=== PATIENT | male | born 1935 | race Caucasian/White ===

== ENCOUNTER 2023-11-10 17:55 | Inpatient (IN) | payer MEDICARE ==
[~2023-11-10] VITALS: Ht 170.2 cm; Wt 86.7 kg
[2023-11-10 21:00] VITALS: BP 141/58; PULSE 121; RESP 20; TEMP 99.1; O2SAT 98
[2023-11-10 21:30] VITALS: BP 134/99; PULSE 101; RESP 20; TEMP 98.7
[2023-11-10] MEDS ORDERED: DOCUSATE SODIUM 100 MG CAP PO PRN (22:15)
[2023-11-10] MEDS ORDERED: ACETAMINOPHEN 325 MG TAB PO PRN (22:15)
[2023-11-10 22:22] VITALS: BP 134/99; PULSE 101; RESP 20; TEMP 98.7; O2SAT 96
[2023-11-10] MEDS ORDERED: ALBUTEROL/IPRATROPIUM 3 ML NEB NEB PRN (22:30)
[2023-11-11] VITALS (11 sets, daily range): BP systolic 86–196; BP diastolic 52–147; PULSE 58–126; RESP 18–20; TEMP 98–101.1; O2SAT 95–100
[2023-11-11] MEDS: SODIUM CHLORIDE 0.9% 1000ML 500 ML IV ONE (04:00)
[2023-11-11] MEDS: DIGOXIN INJ 0.25 MG/ML 2 ML AMP IV ONE ×2 (04:20→10:47)
[2023-11-11] MEDS: DOCUSATE SODIUM 100 MG CAP PO SCH (09:04)
[2023-11-11] MEDS: DIGOXIN 0.125 MG TAB PO SCH (09:05)
[2023-11-11] MEDS: TRAMADOL HCL 50 MG TAB PO PRN (09:05)
[2023-11-11] MEDS ORDERED: SIMETHICONE 80 MG CHEW PO PRN (10:30)
[2023-11-11] MEDS ORDERED: MELATONIN 3 MG TAB PO PRN (10:30)
[2023-11-11] MEDS ORDERED: DOCUSATE SODIUM 100 MG CAP PO PRN (10:30)
[2023-11-11] MEDS ORDERED: ALBUTEROL/IPRATROPIUM 3 ML NEB NEB PRN (10:30)
[2023-11-11] MEDS ORDERED: METOPROLOL TARTRATE INJ 1 MG/ML VIAL IV PRN (10:30)
[2023-11-11] MEDS ORDERED: ONDANSETRON HCL INJ 2MG/ML 2ML 2 MG/ML VIAL IV PRN (10:30)
[2023-11-11 12:41] LABS: BASOPHILS % 0.2 % (0.0-1.0); EOSINOPHILS # (AUTO) 0.1 (0.0-0.4); EOSINOPHILS % 0.4 % (0.0-6.0); HEMATOCRIT 29.7 % (38.2-49.6); HEMOGLOBIN 9.5 g/dL (14.0-18.0); LYMPHOCYTES # (AUTO) 3.1 (1.0-3.2); MEAN CORPUSCULAR HEMOGLOBIN 28.9 pg (28-32); MEAN CORPUSCULAR VOLUME 90.3 fL (81-99); MONOCYTES # (AUTO) 1.2 (0.2-0.8); MONOCYTES % 6.1 % (4.4-11.3); NEUTROPHILS # (AUTO) 14.9 (2.1-6.9); NEUTROPHILS % 76.4 % (38.7-80.0); PLATELET COUNT 271 x10e3/uL (140-360); RED BLOOD COUNT 3.29 x10e6/uL (4.3-5.7); RED CELL DISTRIBUTION WIDTH 13.6 % (11.7-14.4); WHITE BLOOD COUNT 19.46 x10e3/uL (4.8-10.8)
[2023-11-11 15:19] LABS: ALBUMIN 2.3 g/dL (3.5-5.0); ALBUMIN/GLOBULIN RATIO 0.6 (0.8-2.0); ANION GAP 15.9 mmol/L (8-16); BILIRUBIN,TOTAL 0.6 mg/dL (0.2-1.2); CREATININE, SERUM 1.43 mg/dL (0.72-1.25); POTASSIUM 3.9 mmol/L (3.5-5.1); TOTAL PROTEIN 6.3 g/dL (6.5-8.1)
[2023-11-11] MEDS: GUAIFENESIN/DEXTROMETHORPHAN LIQD 5 ML UDC NG PRN (21:41)
[2023-11-12] VITALS (9 sets, daily range): BP systolic 112–129; BP diastolic 58–68; PULSE 85–97; RESP 16–20; TEMP 97.8–98.8; O2SAT 95–98
[2023-11-12] MEDS: ACETAMINOPHEN/CODEINE 300MG - 30MG TAB PO PRN (00:18)
[2023-11-12 06:01] LABS: BASOPHILS % 0.2 % (0.0-1.0); EOSINOPHILS # (AUTO) 0.5 (0.0-0.4); EOSINOPHILS % 2.8 % (0.0-6.0); HEMATOCRIT 28.9 % (38.2-49.6); LYMPHOCYTES # (AUTO) 3.5 (1.0-3.2); LYMPHOCYTES % 20.9 % (18.0-39.1); MEAN CORPUSCULAR HEMOGLOBIN 28.4 pg (28-32); MEAN CORPUSCULAR HGB CONC 31.1 g/dL (31-35); MEAN CORPUSCULAR VOLUME 91.2 fL (81-99); MONOCYTES # (AUTO) 1.3 (0.2-0.8); MONOCYTES % 7.6 % (4.4-11.3); NEUTROPHILS # (AUTO) 11.2 (2.1-6.9); NEUTROPHILS % 67.4 % (38.7-80.0); PLATELET COUNT 276 x10e3/uL (140-360); RED BLOOD COUNT 3.17 x10e6/uL (4.3-5.7); RED CELL DISTRIBUTION WIDTH 13.5 % (11.7-14.4); WHITE BLOOD COUNT 16.58 x10e3/uL (4.8-10.8)
[2023-11-12 06:40] LABS: ANION GAP 12.8 mmol/L (8-16); CALCIUM 8.1 mg/dL (8.4-10.2); CREATININE, SERUM 1.29 mg/dL (0.72-1.25); PHOSPHORUS 3.2 MG/DL (2.3-4.7); POTASSIUM 3.8 mmol/L (3.5-5.1)
[2023-11-12 07:37] LABS: BASOPHILS % (MANUAL) 1 % (0-1.5); EOSINOPHILS % (MANUAL) 1 % (0-7); LYMPHOCYTES % (MANUAL) 20 % (19-48); MONOCYTES % (MANUAL) 6 % (3.4-9.0); NEUTROPHILS % (MANUAL) 72 % (40-74); PLATELET ESTIMATE ADEQUATE; PLATELET MORPHOLOGY COMMENT NORMAL; RBC MORPHOLOGY COMMENT NORMAL
[2023-11-12] MEDS ORDERED: ONDANSETRON HCL 4 MG ORAL DISINTEGRATING TAB PO PRN (14:30)
[2023-11-12] MEDS: ARTIFICIAL TEARS (OPTH) 15 ML BTL OS SCH (21:00)
[2023-11-13] VITALS (10 sets, daily range): BP systolic 111–139; BP diastolic 53–95; PULSE 70–93; RESP 16–20; TEMP 97.6–99.7; O2SAT 94–99
[2023-11-13 06:05] LABS: BASOPHILS % 0.1 % (0.0-1.0); EOSINOPHILS # (AUTO) 0.5 (0.0-0.4); EOSINOPHILS % 3.6 % (0.0-6.0); HEMATOCRIT 27.1 % (38.2-49.6); HEMOGLOBIN 8.5 g/dL (14.0-18.0); LYMPHOCYTES # (AUTO) 2.2 (1.0-3.2); LYMPHOCYTES % 15.8 % (18.0-39.1); MEAN CORPUSCULAR HEMOGLOBIN 28.5 pg (28-32); MEAN CORPUSCULAR HGB CONC 31.4 g/dL (31-35); MEAN CORPUSCULAR VOLUME 90.9 fL (81-99); MONOCYTES # (AUTO) 1.2 (0.2-0.8); NEUTROPHILS # (AUTO) 9.7 (2.1-6.9); NEUTROPHILS % 69.9 % (38.7-80.0); PLATELET COUNT 289 x10e3/uL (140-360); RED BLOOD COUNT 2.98 x10e6/uL (4.3-5.7); RED CELL DISTRIBUTION WIDTH 13.5 % (11.7-14.4); WHITE BLOOD COUNT 13.83 x10e3/uL (4.8-10.8)
[2023-11-13 06:31] LABS: ANION GAP 12.7 mmol/L (8-16); CALCIUM 7.9 mg/dL (8.4-10.2); CREATININE, SERUM 1.21 mg/dL (0.72-1.25); PHOSPHORUS 2.8 MG/DL (2.3-4.7); POTASSIUM 3.7 mmol/L (3.5-5.1)
[2023-11-13] MEDS: METOPROLOL TARTRATE 25 MG TAB PO SCH (09:54)
[2023-11-13] MEDS: BENZONATATE 100 MG CAP PO PRN (17:53)
[2023-11-13] MEDS: APIXABAN 5 MG TABLET PO SCH (22:02)
[2023-11-14] VITALS: BP 138/86; PULSE 92; RESP 18; TEMP 98.7; O2SAT 99
[2023-11-14 04:00] VITALS: BP 107/48; PULSE 85; RESP 18; TEMP 99.1; O2SAT 96
[2023-11-14 06:45] VITALS: PULSE 95; RESP 22; O2SAT 95
[2023-11-14 08:34] VITALS: BP 153/76; PULSE 75; RESP 19; TEMP 98; O2SAT 98
[2023-11-14 09:16] VITALS: BP 131/67; PULSE 98; RESP 20; TEMP 98.7; O2SAT 95
[2023-11-14 10:16] LABS: BASOPHILS % 0.1 % (0.0-1.0); EOSINOPHILS # (AUTO) 0.2 (0.0-0.4); EOSINOPHILS % 1.2 % (0.0-6.0); HEMATOCRIT 31.1 % (38.2-49.6); HEMOGLOBIN 9.8 g/dL (14.0-18.0); LYMPHOCYTES # (AUTO) 2.1 (1.0-3.2); LYMPHOCYTES % 14.3 % (18.0-39.1); MEAN CORPUSCULAR HEMOGLOBIN 28.6 pg (28-32); MEAN CORPUSCULAR HGB CONC 31.5 g/dL (31-35); MEAN CORPUSCULAR VOLUME 90.7 fL (81-99); MONOCYTES # (AUTO) 1.3 (0.2-0.8); MONOCYTES % 8.8 % (4.4-11.3); NEUTROPHILS # (AUTO) 10.5 (2.1-6.9); PLATELET COUNT 353 x10e3/uL (140-360); RED BLOOD COUNT 3.43 x10e6/uL (4.3-5.7); RED CELL DISTRIBUTION WIDTH 13.8 % (11.7-14.4); WHITE BLOOD COUNT 14.35 x10e3/uL (4.8-10.8)
[2023-11-14 10:35] LABS: ANION GAP 15.4 mmol/L (8-16); CALCIUM 8.6 mg/dL (8.4-10.2); CREATININE, SERUM 1.16 mg/dL (0.72-1.25); POTASSIUM 4.4 mmol/L (3.5-5.1)
[2023-11-14 16:32] VITALS: BP 137/65; PULSE 83; RESP 19; TEMP 97.9; O2SAT 97
[2023-11-15] MEDS ORDERED: AZITHROMYCIN 250 MG TAB PO SCH (10:00)
== END 2023-11-14 17:37 | DRG 871 ==
LOC: MED/SURG2 21:19
PROVIDERS: ADMIT Internal Medicine; ATTEND Internal Medicine
PROC: 3E0333Z Introduction of Anti-inflammatory into Peripheral Vein, Percutaneous Approach (ICD-10-PCS; principal; 2023-11-11)
DX: A41.9 Sepsis, unspecified organism (principal); J18.9 Pneumonia, unspecified organism; Z59.01 Sheltered homelessness; I48.0 Paroxysmal atrial fibrillation; Z90.01 Acquired absence of eye
CPT/HCPCS: 36415; 71046; 71250; 74230; 80048; 80053; 82948; 83605; 83735; 84100; 85025; 87040; 93306; 94799; J1160; J2543; J7050

== ENCOUNTER 2023-12-17 16:57 | Inpatient (IN) | payer MEDICARE ==
[~2023-12-17] VITALS: Ht 172.7 cm; Wt 92.1 kg
[2023-12-17 18:00] LABS: BASOPHILS % 0.2 % (0.0-1.0); EOSINOPHILS # (AUTO) 0.1 (0.0-0.4); EOSINOPHILS % 0.4 % (0.0-6.0); LYMPHOCYTES # (AUTO) 4.4 (1.0-3.2); LYMPHOCYTES % 36.1 % (18.0-39.1); MEAN CORPUSCULAR HEMOGLOBIN 27.7 pg (28-32); MEAN CORPUSCULAR VOLUME 95.4 fL (81-99); MONOCYTES # (AUTO) 0.7 (0.2-0.8); MONOCYTES % 5.4 % (4.4-11.3); NEUTROPHILS % 57.2 % (38.7-80.0); PLATELET COUNT 135 x10e3/uL (140-360); RED CELL DISTRIBUTION WIDTH 15.4 % (11.7-14.4)
[2023-12-17 18:01] LABS: HEMOGLOBIN 3.6 g/dL (14.0-18.0)
[2023-12-17 18:02] LABS: HEMATOCRIT 12.4 % (38.2-49.6)
[2023-12-17 18:12] LABS: ALBUMIN 1.9 g/dL (3.5-5.0); ALBUMIN/GLOBULIN RATIO 1.1 (0.8-2.0); ANION GAP 16.8 mmol/L (8-16); BILIRUBIN,TOTAL 0.3 mg/dL (0.2-1.2); CREATININE, SERUM 1.06 mg/dL (0.72-1.25); POTASSIUM 4.8 mmol/L (3.5-5.1); TOTAL PROTEIN 3.7 g/dL (6.5-8.1)
[2023-12-17 18:14] LABS: CALCIUM 6.8 mg/dL (8.4-10.2)
[2023-12-17] MEDS ORDERED: OCTREOTIDE ACETATE 500 MCG in SODIUM CHLORIDE 0.9% 250ML 249 ML IV SCH (18:15)
[2023-12-17 18:18] LABS: TROPONIN I 0.049 ng/mL (0-0.300)
[2023-12-17] MEDS ORDERED: SODIUM CHLORIDE 0.9% 250ML 500 ML ONE (18:24)
[2023-12-17] MEDS ORDERED: IOPAMIDOL 370 MG/ML 100 ML INFUS..BTL INJ ONE (18:34)
[2023-12-17] MEDS ORDERED: SODIUM CHLORIDE 0.9% 100 ML ONE (18:34)
[2023-12-17 18:41] LABS: INR 1.95; PARTIAL THROMBOPLASTIN TIME 35.4 seconds (23.8-35.5); PROTHROMBIN TIME 23.2 seconds (11.9-14.5)
[2023-12-17] MEDS: ACETAMINOPHEN 325 MG TAB PO STA (18:41)
[2023-12-17] MEDS: SODIUM CHLORIDE 0.9% 1000ML 1,000 ML IV ONE ×2 (18:41→22:52)
[2023-12-17] MEDS: SODIUM CHLORIDE 0.9% 250ML 250 ML IV ONE ×2 (18:42→18:43)
[2023-12-17] MEDS: SODIUM CHLORIDE 0.9% 1000ML 1,000 ML IV STA (18:44)
[2023-12-17] MEDS: ONDANSETRON HCL INJ 2MG/ML 2ML 2 MG/ML VIAL IV STA (18:44)
[2023-12-17] MEDS ORDERED: OCTREOTIDE ACETATE 1 ML ONE (19:19)
[2023-12-17] MEDS: NOREPINEPHRINE 8 MG/D5W 250 ML 250 ML IV SCH (19:23)
[2023-12-17] MEDS: CALCIUM GLUC 1 G/50 ML NACL 50 ML IV ONE (19:44)
[2023-12-17] MEDS: OCTREOTIDE ACETATE 500 MCG in SODIUM CHLORIDE 0.9% 250ML 249 ML IV SCH (19:57)
[2023-12-17] MEDS: OCTREOTIDE ACETATE 0.05 MG/ML AMP IV ONE (20:09)
[2023-12-17] MEDS: Morphine 4mg INJECTION 4 MG/ML INJ IV ONE (21:13)
[2023-12-17] MEDS: ACETAMINOPHEN 325 MG TAB PO ONE (21:29)
[2023-12-17 21:40] VITALS: PULSE 84; RESP 17; TEMP 98.6
[2023-12-17] MEDS: MUPIROCIN 2% OINT 22 GM TUBE TOP SCH (22:00)
[2023-12-17 22:40] VITALS: PULSE 128; RESP 17; O2SAT 97
[2023-12-17 23:50] VITALS: BP 119/51; PULSE 60; RESP 18; TEMP 98.6; O2SAT 100
[2023-12-18] VITALS (100 sets, daily range): BP systolic 81–159; BP diastolic 41–92; PULSE 39–155; RESP 13–28; TEMP 97.4–99.8; O2SAT 91–100
[2023-12-18] MEDS: Morphine 4mg INJECTION 4 MG/ML INJ IV PRN ×2 (04:15→12:20)
[2023-12-18] MEDS: METOPROLOL TARTRATE INJ 1 MG/ML VIAL IV ONE (05:50)
[2023-12-18 09:05] LABS: BASOPHILS % 0.2 % (0.0-1.0); EOSINOPHILS % 0.1 % (0.0-6.0); HEMATOCRIT 28.2 % (38.2-49.6); HEMOGLOBIN 9.4 g/dL (14.0-18.0); LYMPHOCYTES % 10.1 % (18.0-39.1); MEAN CORPUSCULAR HGB CONC 33.3 g/dL (31-35); MEAN CORPUSCULAR VOLUME 90.1 fL (81-99); MONOCYTES # (AUTO) 1.4 (0.2-0.8); MONOCYTES % 7.1 % (4.4-11.3); NEUTROPHILS # (AUTO) 15.8 (2.1-6.9); NEUTROPHILS % 81.4 % (38.7-80.0); PLATELET COUNT 147 x10e3/uL (140-360); RED BLOOD COUNT 3.13 x10e6/uL (4.3-5.7); RED CELL DISTRIBUTION WIDTH 15.9 % (11.7-14.4); WHITE BLOOD COUNT 19.45 x10e3/uL (4.8-10.8)
[2023-12-18 09:34] LABS: ALBUMIN 2.5 g/dL (3.5-5.0); ALBUMIN/GLOBULIN RATIO 1.1 (0.8-2.0); ANION GAP 12.2 mmol/L (8-16); BILIRUBIN,TOTAL 0.8 mg/dL (0.2-1.2); CALCIUM 7.5 mg/dL (8.4-10.2); CREATININE, SERUM 1.15 mg/dL (0.72-1.25); POTASSIUM 4.2 mmol/L (3.5-5.1); TOTAL PROTEIN 4.8 g/dL (6.5-8.1)
[2023-12-18 10:25] LABS: TROPONIN I 0.07 ng/mL (0.0-0.40)
[2023-12-18] MEDS ORDERED: ONDANSETRON ODT4 MG PO (10:30)
[2023-12-18] MEDS ORDERED: IPRATROPIU0.2 MG/1 M INH (10:30)
[2023-12-18] MEDS ORDERED: MELATONIN3 MG PO (10:30)
[2023-12-18] MEDS ORDERED: BENZONATATE100 MG PO (10:30)
[2023-12-18] MEDS ORDERED: TYLENOL325 MG PO (10:30)
[2023-12-18] MEDS ORDERED: DULCOLAX SUPP10 MG RC (10:30)
[2023-12-18] MEDS ORDERED: ACETAMINOPHEN-1 EAC4 PO (10:30)
[2023-12-18] MEDS ORDERED: METOPROLOL TART25 MG PO (10:30)
[2023-12-18] MEDS ORDERED: DIGOXIN125 MCG PO (10:30)
[2023-12-18] MEDS ORDERED: ELIQUIS5 MG PO (10:30)
[2023-12-18] MEDS ORDERED: DOCUSATE SODIU100 MG PO (10:30)
[2023-12-18] MEDS ORDERED: ARTIFICIAL TEAR15 ML OD (10:30)
[2023-12-18] MEDS ORDERED: LATANOPROST2.5 ML OP (10:30)
[2023-12-18] MEDS ORDERED: IMODIUM A-1 MG/7.5 M PO (10:30)
[2023-12-18] MEDS ORDERED: GUAIFENESIN-DM 15 M1 PO (10:30)
[2023-12-18] MEDS: DIGOXIN 0.125 MG TAB PO SCH (12:05)
[2023-12-18] MEDS: ALBUMIN 5% 0.05 GM/ML BTL IV ONE ×2 (13:30→19:10)
[2023-12-18] MEDS ORDERED: AMIODARONE HCL 150 MG/100 ML BAG IV ONE (14:30)
[2023-12-18] MEDS: AMIODARONE HCL 100 ML IV ONE (14:36)
[2023-12-18] MEDS: AMIODARONE 900MG 500 ML IV SCH ×2 (14:49→21:07)
[2023-12-18] MEDS: VASOPRESSIN 60 UNIT in DEXTROSE 5% 50ML 57 ML IV SCH (14:55)
[2023-12-18] MEDS: OCTREOTIDE ACETATE 500 MCG in SODIUM CHLORIDE 0.9% 250ML 249 ML IV SCH (15:02)
[2023-12-18 15:24] LABS: HEMATOCRIT 24.7 % (38.2-49.6)
[2023-12-18] MEDS: METOPROLOL TARTRATE 25 MG TAB PO SCH (16:55)
[2023-12-18] MEDS: PHENYLEPHRINE 10MG/ML VIAL 40 MG in DEXTROSE 5% 250ML 246 ML IV SCH (18:45)
[2023-12-18 19:09] LABS: TROPONIN I 0.2 ng/mL (0-0.300)
[2023-12-18] MEDS: SODIUM CHLORIDE 0.9% 250ML 250 ML ONE ×2 (19:21)
[2023-12-18 21:20] LABS: BASOPHILS % 0.3 % (0.0-1.0); EOSINOPHILS % 0.1 % (0.0-6.0); HEMATOCRIT 23.3 % (38.2-49.6); HEMOGLOBIN 7.6 g/dL (14.0-18.0); LYMPHOCYTES # (AUTO) 2.8 (1.0-3.2); LYMPHOCYTES % 17.5 % (18.0-39.1); MEAN CORPUSCULAR HEMOGLOBIN 29.8 pg (28-32); MEAN CORPUSCULAR HGB CONC 32.6 g/dL (31-35); MEAN CORPUSCULAR VOLUME 91.4 fL (81-99); MONOCYTES # (AUTO) 1.2 (0.2-0.8); MONOCYTES % 7.2 % (4.4-11.3); NEUTROPHILS # (AUTO) 11.8 (2.1-6.9); NEUTROPHILS % 74.1 % (38.7-80.0); PLATELET COUNT 112 x10e3/uL (140-360); RED BLOOD COUNT 2.55 x10e6/uL (4.3-5.7); RED CELL DISTRIBUTION WIDTH 16.3 % (11.7-14.4); WHITE BLOOD COUNT 15.95 x10e3/uL (4.8-10.8)
[2023-12-18 21:29] LABS: CREATINE KINASE 103 IU/L (30-200)
[2023-12-18] MEDS ORDERED: SODIUM CHLORIDE 0.9% 250ML 250 ML IV PRN (21:30)
[2023-12-18 21:35] LABS: TROPONIN I < 0.05 ng/mL (0.0-0.40)
[2023-12-18] MEDS: SODIUM CHLORIDE 0.9% 250ML 250 ML IV ONE (22:38)
[2023-12-19] VITALS (90 sets, daily range): BP systolic 83–121; BP diastolic 38–94; PULSE 44–100; RESP 15–33; TEMP 96.7–99.8; O2SAT 65–99
[2023-12-19 05:23] LABS: BASOPHILS # (AUTO) 0.1 (0.0-0.1); BASOPHILS % 0.4 % (0.0-1.0); EOSINOPHILS # (AUTO) 0.1 (0.0-0.4); EOSINOPHILS % 0.4 % (0.0-6.0); HEMATOCRIT 28.4 % (38.2-49.6); HEMOGLOBIN 9.1 g/dL (14.0-18.0); LYMPHOCYTES # (AUTO) 3.5 (1.0-3.2); LYMPHOCYTES % 25.3 % (18.0-39.1); MEAN CORPUSCULAR HEMOGLOBIN 29.6 pg (28-32); MEAN CORPUSCULAR VOLUME 92.5 fL (81-99); MONOCYTES # (AUTO) 1.2 (0.2-0.8); MONOCYTES % 8.8 % (4.4-11.3); NEUTROPHILS % 64.7 % (38.7-80.0); PLATELET COUNT 116 x10e3/uL (140-360); RED BLOOD COUNT 3.07 x10e6/uL (4.3-5.7); RED CELL DISTRIBUTION WIDTH 16.8 % (11.7-14.4)
[2023-12-19 05:46] LABS: ALBUMIN 2.7 g/dL (3.5-5.0); ALBUMIN/GLOBULIN RATIO 1.2 (0.8-2.0); ANION GAP 11.1 mmol/L (8-16); CALCIUM 7.6 mg/dL (8.4-10.2); CREATININE, SERUM 1.21 mg/dL (0.72-1.25); POTASSIUM 4.1 mmol/L (3.5-5.1)
[2023-12-19 05:57] LABS: INR 1.35; PROTHROMBIN TIME 17.4 seconds (11.9-14.5)
[2023-12-19 13:29] LABS: HEMATOCRIT 27.5 % (38.2-49.6); HEMOGLOBIN 8.8 g/dL (14.0-18.0)
[2023-12-19] MEDS: Morphine 4mg INJECTION 4 MG/ML INJ IV PRN (21:27)
[2023-12-20] VITALS (92 sets, daily range): BP systolic 65–137; BP diastolic 47–86; PULSE 34–99; RESP 13–32; TEMP 96.9–98.1; O2SAT 91–100
[2023-12-20 07:02] LABS: BASOPHILS % 0.3 % (0.0-1.0); EOSINOPHILS # (AUTO) 0.1 (0.0-0.4); EOSINOPHILS % 0.8 % (0.0-6.0); HEMATOCRIT 27.9 % (38.2-49.6); HEMOGLOBIN 8.8 g/dL (14.0-18.0); LYMPHOCYTES # (AUTO) 2.1 (1.0-3.2); LYMPHOCYTES % 17.3 % (18.0-39.1); MEAN CORPUSCULAR HEMOGLOBIN 29.8 pg (28-32); MEAN CORPUSCULAR HGB CONC 31.5 g/dL (31-35); MEAN CORPUSCULAR VOLUME 94.6 fL (81-99); MONOCYTES # (AUTO) 1.6 (0.2-0.8); MONOCYTES % 12.8 % (4.4-11.3); NEUTROPHILS # (AUTO) 8.5 (2.1-6.9); NEUTROPHILS % 68.3 % (38.7-80.0); PLATELET COUNT 134 x10e3/uL (140-360); RED BLOOD COUNT 2.95 x10e6/uL (4.3-5.7); RED CELL DISTRIBUTION WIDTH 18.4 % (11.7-14.4)
[2023-12-20 07:22] LABS: ALBUMIN 2.4 g/dL (3.5-5.0); ALBUMIN/GLOBULIN RATIO 0.9 (0.8-2.0); ANION GAP 11.1 mmol/L (8-16); BILIRUBIN,TOTAL 1.1 mg/dL (0.2-1.2); CALCIUM 7.6 mg/dL (8.4-10.2); CREATININE, SERUM 0.99 mg/dL (0.72-1.25); POTASSIUM 4.1 mmol/L (3.5-5.1); TOTAL PROTEIN 5.1 g/dL (6.5-8.1)
[2023-12-20 09:37] LABS: CLARITY,URINE SL CLOUDY (CLEAR); COLOR,URINE YELLOW (YELLOW)
[2023-12-20 09:38] LABS: BILIRUBIN,URINE NEGATIVE (NEGATIVE); GLUCOSE, URINE NEGATIVE (NEGATIVE); KETONES,URINE NEGATIVE (NEGATIVE); LEUKOCYTE ESTERASE ,URINE TRACE (NEGATIVE); NITRITE,URINE NEGATIVE (NEGATIVE); PH,URINE 6 (5 - 7); PROTEIN,URINE DIPSTICK 1+ (NEGATIVE); URINE UROBILINOGEN 1 mg/dL (0.2 - 1)
[2023-12-20 09:39] LABS: BACTERIA,URINE MODERATE /HPF; RBC,URINE >50 /HPF (0-5); WBC,URINE (MAN) >50 /HPF (0-5)
[2023-12-20] MEDS: VASOPRESSIN 60 UNIT in DEXTROSE 5% 50ML 57 ML IV SCH (17:39)
[2023-12-21] VITALS (49 sets, daily range): BP systolic 96–137; BP diastolic 46–79; PULSE 57–99; RESP 18–34; TEMP 98.5–99.3; O2SAT 92–99
[2023-12-21 05:13] LABS: BASOPHILS % 0.3 % (0.0-1.0); EOSINOPHILS # (AUTO) 0.2 (0.0-0.4); EOSINOPHILS % 1.3 % (0.0-6.0); HEMATOCRIT 26.3 % (38.2-49.6); HEMOGLOBIN 8.3 g/dL (14.0-18.0); LYMPHOCYTES # (AUTO) 2.4 (1.0-3.2); LYMPHOCYTES % 18.9 % (18.0-39.1); MEAN CORPUSCULAR HEMOGLOBIN 29.7 pg (28-32); MEAN CORPUSCULAR HGB CONC 31.6 g/dL (31-35); MEAN CORPUSCULAR VOLUME 94.3 fL (81-99); MONOCYTES # (AUTO) 1.8 (0.2-0.8); MONOCYTES % 13.8 % (4.4-11.3); NEUTROPHILS # (AUTO) 8.3 (2.1-6.9); NEUTROPHILS % 64.9 % (38.7-80.0); PLATELET COUNT 108 x10e3/uL (140-360); RED BLOOD COUNT 2.79 x10e6/uL (4.3-5.7); RED CELL DISTRIBUTION WIDTH 18.5 % (11.7-14.4); WHITE BLOOD COUNT 12.83 x10e3/uL (4.8-10.8)
[2023-12-21 05:47] LABS: ALBUMIN 2.1 g/dL (3.5-5.0); ALBUMIN/GLOBULIN RATIO 0.8 (0.8-2.0); ANION GAP 10.6 mmol/L (8-16); CALCIUM 7.2 mg/dL (8.4-10.2); CREATININE, SERUM 0.97 mg/dL (0.72-1.25); POTASSIUM 3.6 mmol/L (3.5-5.1); TOTAL PROTEIN 4.9 g/dL (6.5-8.1)
[2023-12-21] MEDS: AMIODARONE HCL 200 MG TAB PO SCH (16:34)
[2023-12-22] VITALS (39 sets, daily range): BP systolic 89–170; BP diastolic 50–97; PULSE 60–113; RESP 19–41; TEMP 98.4–99.7; O2SAT 87–100
[2023-12-22 06:49] LABS: BASOPHILS % 0.3 % (0.0-1.0); EOSINOPHILS # (AUTO) 0.2 (0.0-0.4); EOSINOPHILS % 1.7 % (0.0-6.0); HEMATOCRIT 26.5 % (38.2-49.6); HEMOGLOBIN 8.3 g/dL (14.0-18.0); LYMPHOCYTES # (AUTO) 2.7 (1.0-3.2); LYMPHOCYTES % 22.9 % (18.0-39.1); MEAN CORPUSCULAR HEMOGLOBIN 29.5 pg (28-32); MEAN CORPUSCULAR HGB CONC 31.3 g/dL (31-35); MEAN CORPUSCULAR VOLUME 94.3 fL (81-99); MONOCYTES # (AUTO) 1.9 (0.2-0.8); MONOCYTES % 15.4 % (4.4-11.3); NEUTROPHILS # (AUTO) 7.1 (2.1-6.9); PLATELET COUNT 196 x10e3/uL (140-360); RED BLOOD COUNT 2.81 x10e6/uL (4.3-5.7); RED CELL DISTRIBUTION WIDTH 18.1 % (11.7-14.4); WHITE BLOOD COUNT 11.99 x10e3/uL (4.8-10.8)
[2023-12-22 07:10] LABS: ALBUMIN/GLOBULIN RATIO 0.6 (0.8-2.0); ANION GAP 11.6 mmol/L (8-16); BILIRUBIN,TOTAL 0.8 mg/dL (0.2-1.2); CALCIUM 7.4 mg/dL (8.4-10.2); CREATININE, SERUM 0.88 mg/dL (0.72-1.25); POTASSIUM 3.6 mmol/L (3.5-5.1); TOTAL PROTEIN 5.1 g/dL (6.5-8.1)
[2023-12-22] MEDS ORDERED: POTASSIUM CHLORIDE 20 MEQ TAB CR PO STA (08:07)
[2023-12-22] MEDS: ALBUTEROL/IPRATROPIUM 3 ML NEB NEB ONE (08:28)
[2023-12-22] MEDS: POTASSIUM CHLORIDE 20MEQ/100ML 100 ML IV SCH (09:56)
[2023-12-22] MEDS: ALBUTEROL/IPRATROPIUM 3 ML NEB ONE (19:48)
[2023-12-23] VITALS (20 sets, daily range): BP systolic 92–135; BP diastolic 51–83; PULSE 54–115; RESP 20–41; TEMP 97–98.9; O2SAT 93–100
[2023-12-23 06:55] LABS: BASOPHILS # (AUTO) 0.1 (0.0-0.1); BASOPHILS % 0.4 % (0.0-1.0); EOSINOPHILS # (AUTO) 0.4 (0.0-0.4); EOSINOPHILS % 2.9 % (0.0-6.0); HEMATOCRIT 26.1 % (38.2-49.6); HEMOGLOBIN 8.1 g/dL (14.0-18.0); LYMPHOCYTES # (AUTO) 1.9 (1.0-3.2); LYMPHOCYTES % 15.9 % (18.0-39.1); MEAN CORPUSCULAR HEMOGLOBIN 29.1 pg (28-32); MEAN CORPUSCULAR VOLUME 93.9 fL (81-99); MONOCYTES # (AUTO) 1.5 (0.2-0.8); MONOCYTES % 12.1 % (4.4-11.3); NEUTROPHILS # (AUTO) 8.2 (2.1-6.9); NEUTROPHILS % 68.1 % (38.7-80.0); PLATELET COUNT 215 x10e3/uL (140-360); RED BLOOD COUNT 2.78 x10e6/uL (4.3-5.7); RED CELL DISTRIBUTION WIDTH 17.5 % (11.7-14.4); WHITE BLOOD COUNT 11.98 x10e3/uL (4.8-10.8)
[2023-12-23 07:13] LABS: ALBUMIN 1.8 g/dL (3.5-5.0); ALBUMIN/GLOBULIN RATIO 0.6 (0.8-2.0); BILIRUBIN,TOTAL 1.3 mg/dL (0.2-1.2); CALCIUM 7.3 mg/dL (8.4-10.2); CREATININE, SERUM 0.84 mg/dL (0.72-1.25); TOTAL PROTEIN 4.9 g/dL (6.5-8.1)
[2023-12-24] VITALS (12 sets, daily range): BP systolic 120–144; BP diastolic 48–78; PULSE 57–93; RESP 18–20; TEMP 97.7–99; O2SAT 84–100
[2023-12-24] MEDS: SENNA-S TABLET PO SCH (00:02)
[2023-12-24 05:57] LABS: BASOPHILS % 0.2 % (0.0-1.0); EOSINOPHILS # (AUTO) 0.4 (0.0-0.4); EOSINOPHILS % 3.4 % (0.0-6.0); HEMATOCRIT 27.7 % (38.2-49.6); HEMOGLOBIN 8.6 g/dL (14.0-18.0); LYMPHOCYTES # (AUTO) 2.3 (1.0-3.2); MEAN CORPUSCULAR HEMOGLOBIN 29.2 pg (28-32); MEAN CORPUSCULAR VOLUME 93.9 fL (81-99); MONOCYTES # (AUTO) 1.3 (0.2-0.8); MONOCYTES % 10.3 % (4.4-11.3); NEUTROPHILS # (AUTO) 8.4 (2.1-6.9); NEUTROPHILS % 67.2 % (38.7-80.0); PLATELET COUNT 276 x10e3/uL (140-360); RED BLOOD COUNT 2.95 x10e6/uL (4.3-5.7); RED CELL DISTRIBUTION WIDTH 17.2 % (11.7-14.4); WHITE BLOOD COUNT 12.53 x10e3/uL (4.8-10.8)
[2023-12-24 06:40] LABS: ALBUMIN 1.7 g/dL (3.5-5.0); ALBUMIN/GLOBULIN RATIO 0.5 (0.8-2.0); ANION GAP 10.8 mmol/L (8-16); BILIRUBIN,TOTAL 1.4 mg/dL (0.2-1.2); CALCIUM 7.3 mg/dL (8.4-10.2); CREATININE, SERUM 0.82 mg/dL (0.72-1.25); POTASSIUM 3.8 mmol/L (3.5-5.1); TOTAL PROTEIN 5.1 g/dL (6.5-8.1)
[2023-12-24] MEDS: POLYETHYLENE GLYCOL 3350 17 GM PACK PO SCH (10:20)
[2023-12-24] MEDS: ACETAMINOPHEN 325 MG TAB PO PRN (22:35)
[2023-12-25] VITALS (11 sets, daily range): BP systolic 96–139; BP diastolic 65–74; PULSE 65–97; RESP 15–22; TEMP 97.6–99; O2SAT 93–100
[2023-12-25 05:31] LABS: BASOPHILS % 0.3 % (0.0-1.0); EOSINOPHILS # (AUTO) 0.6 (0.0-0.4); EOSINOPHILS % 4.7 % (0.0-6.0); HEMATOCRIT 28.4 % (38.2-49.6); HEMOGLOBIN 8.8 g/dL (14.0-18.0); LYMPHOCYTES # (AUTO) 2.2 (1.0-3.2); LYMPHOCYTES % 19.1 % (18.0-39.1); MEAN CORPUSCULAR HEMOGLOBIN 28.7 pg (28-32); MEAN CORPUSCULAR VOLUME 92.5 fL (81-99); MONOCYTES # (AUTO) 1.2 (0.2-0.8); MONOCYTES % 9.9 % (4.4-11.3); NEUTROPHILS # (AUTO) 7.6 (2.1-6.9); NEUTROPHILS % 65.2 % (38.7-80.0); PLATELET COUNT 331 x10e3/uL (140-360); RED BLOOD COUNT 3.07 x10e6/uL (4.3-5.7); RED CELL DISTRIBUTION WIDTH 17.2 % (11.7-14.4)
[2023-12-25 05:57] LABS: ALBUMIN 1.7 g/dL (3.5-5.0); ALBUMIN/GLOBULIN RATIO 0.4 (0.8-2.0); ANION GAP 10.9 mmol/L (8-16); BILIRUBIN,TOTAL 1.3 mg/dL (0.2-1.2); CALCIUM 7.7 mg/dL (8.4-10.2); CREATININE, SERUM 0.86 mg/dL (0.72-1.25); POTASSIUM 3.9 mmol/L (3.5-5.1); TOTAL PROTEIN 5.5 g/dL (6.5-8.1)
[2023-12-25 10:37] LABS: EOSINOPHILS % (MANUAL) 4 % (0-7); HYPOCHROMASIA SLIGHT; LYMPHOCYTES % (MANUAL) 23 % (19-48); MONOCYTES % (MANUAL) 8 % (3.4-9.0); NEUTROPHILS % (MANUAL) 63 % (40-74); PLATELET ESTIMATE ADEQUATE; PLATELET MORPHOLOGY COMMENT NORMAL; RBC MORPHOLOGY COMMENT NORMAL; REACTIVE LYMPHOCYTES 2
[2023-12-25] MEDS ORDERED: PROPOFOL IV EMULSION 10 MG/ML 20 ML VIAL ONE (12:05)
[2023-12-25] MEDS ORDERED: LIDOCAINE HCL 2% LOCAL INJ 5 ML SDV VIAL INJ ONE (12:05)
[2023-12-25] MEDS: FLUTICASONE PROPIONATE NASAL SPRAY NS SCH (12:17)
== END 2023-12-25 23:25 | DRG 377 ==
LOC: ER 17:11 → ERHOLD 21:00 → ICU 23:55 → MED/SURG3 12-23 16:09
PROVIDERS: ADMIT Family Medicine Adult Medicine; ATTEND Family Medicine Adult Medicine
PROC: 06HY33Z Insertion of Infusion Device into Lower Vein, Percutaneous Approach (ICD-10-PCS; 2023-12-17)
PROC: 30233N1 Transfusion of Nonautologous Red Blood Cells into Peripheral Vein, Percutaneous Approach (ICD-10-PCS; 2023-12-17)
PROC: 30233K1 Transfusion of Nonautologous Frozen Plasma into Peripheral Vein, Percutaneous Approach (ICD-10-PCS; 2023-12-18)
PROC: 3E033XZ Introduction of Vasopressor into Peripheral Vein, Percutaneous Approach (ICD-10-PCS; 2023-12-18)
PROC: 02HV33Z Insertion of Infusion Device into Superior Vena Cava, Percutaneous Approach (ICD-10-PCS; 2023-12-18)
PROC: 0DB78ZX Excision of Stomach, Pylorus, Via Natural or Artificial Opening Endoscopic, Diagnostic (ICD-10-PCS; 2023-12-25)
PROC: 0DB68ZX Excision of Stomach, Via Natural or Artificial Opening Endoscopic, Diagnostic (ICD-10-PCS; principal; 2023-12-25 13:33)
DX: K29.71 Gastritis, unspecified, with bleeding (principal); J69.0 Pneumonitis due to inhalation of food and vomit; R57.8 Other shock; D62 Acute posthemorrhagic anemia; I48.20 Chronic atrial fibrillation, unspecified; R64 Cachexia; D68.9 Coagulation defect, unspecified; E83.51 Hypocalcemia; E11.42 Type 2 diabetes mellitus with diabetic polyneuropathy; K20.90 Esophagitis, unspecified without bleeding; I10 Essential (primary) hypertension; E78.5 Hyperlipidemia, unspecified; K44.9 Diaphragmatic hernia without obstruction or gangrene; E03.9 Hypothyroidism, unspecified; Z79.01 Long term (current) use of anticoagulants; Z68.30 Body mass index [BMI] 30.0-30.9, adult
CPT/HCPCS: 36415; 36569; 43239; 71045; 74174; 80053; 81001; 82550; 82948; 83605; 83690; 84484; 85014; 85018; 85025; 85610; 85730; 86850; 86900; 86920; 87040; 87086; 88305; 88342; 93005; 94640; 94799; 99252; 99285; J2001; J2270; J2353; J2354; J2371; J2405; J2470; J2543; J3480; J7030; J7050; P9016; P9017; Q9967

== ENCOUNTER 2024-05-11 23:29 | Emergency (ER) | payer MEDICARE ==
[~2024-05-11] VITALS: Ht 172.7 cm; Wt 92.1 kg
[~2024-05-11 23:29] MED LIST: ACETAMINOPHEN-1 EAC4 PO; ARTIFICIAL TEAR15 ML OD; BENZONATATE100 MG PO; DIGOXIN125 MCG PO; DOCUSATE SODIU100 MG PO; DULCOLAX SUPP10 MG RC; ELIQUIS5 MG PO; GUAIFENESIN-DM 15 M1 PO; IMODIUM A-1 MG/7.5 M PO; IPRATROPIU0.2 MG/1 M INH; LATANOPROST2.5 ML OP; MELATONIN3 MG PO; METOPROLOL TART25 MG PO; ONDANSETRON ODT4 MG PO; TYLENOL325 MG PO
[2024-05-11 23:40] VITALS: TEMP 97.8
[2024-05-12 00:13] LABS: BASOPHILS % 0.3 % (0.0-1.0); EOSINOPHILS # (AUTO) 0.2 (0.0-0.4); EOSINOPHILS % 1.7 % (0.0-6.0); HEMATOCRIT 37.4 % (38.2-49.6); HEMOGLOBIN 12.4 g/dL (14.0-18.0); LYMPHOCYTES % 22.5 % (18.0-39.1); MEAN CORPUSCULAR HEMOGLOBIN 27.6 pg (28-32); MEAN CORPUSCULAR HGB CONC 33.2 g/dL (31-35); MEAN CORPUSCULAR VOLUME 83.1 fL (81-99); MONOCYTES # (AUTO) 0.7 (0.2-0.8); MONOCYTES % 8.2 % (4.4-11.3); NEUTROPHILS # (AUTO) 5.8 (2.1-6.9); NEUTROPHILS % 67.1 % (38.7-80.0); PLATELET COUNT 281 x10e3/uL (140-360); RED CELL DISTRIBUTION WIDTH 18.8 % (11.7-14.4)
[2024-05-12 00:36] LABS: ALBUMIN 3.3 g/dL (3.5-5.0); ALBUMIN/GLOBULIN RATIO 0.8 (0.8-2.0); ANION GAP 19.1 mmol/L (8-16); BILIRUBIN,TOTAL 0.4 mg/dL (0.2-1.2); CALCIUM 9.7 mg/dL (8.4-10.2); CREATININE, SERUM 1.34 mg/dL (0.72-1.25); POTASSIUM 4.1 mmol/L (3.5-5.1); TOTAL PROTEIN 7.7 g/dL (6.5-8.1)
[2024-05-12 02:03] VITALS: PULSE 78; RESP 19
[2024-05-12 02:21] LABS: BILIRUBIN,URINE NEGATIVE (NEGATIVE); CLARITY,URINE CLOUDY (CLEAR); COLOR,URINE STRAW (YELLOW); GLUCOSE, URINE NEGATIVE (NEGATIVE); KETONES,URINE NEGATIVE (NEGATIVE); LEUKOCYTE ESTERASE ,URINE NEGATIVE (NEGATIVE); NITRITE,URINE NEGATIVE (NEGATIVE); PH,URINE 6 (5 - 7); PROTEIN,URINE DIPSTICK NEGATIVE (NEGATIVE); URINE UROBILINOGEN 0.2 mg/dL (0.2 - 1)
[2024-05-12 02:28] LABS: BACTERIA,URINE FEW /HPF; EPITHELIAL CELLS,URINE FEW /LPF; RBC,URINE >50 /HPF (0-5)
[2024-05-12] MEDS ORDERED: CEFDINIR300 MG PO (02:34)
[2024-05-12 03:16] VITALS: BP 141/71; PULSE 81; RESP 17; TEMP 98; O2SAT 95
== END 2024-05-12 03:21 ==
LOC: ER 23:32
DX: R41.0 Disorientation, unspecified (principal); F03.90 Unspecified dementia, unspecified severity, without behavioral disturbance, psychotic disturbance, mood disturbance, and anxiety; N39.0 Urinary tract infection, site not specified; H40.9 Unspecified glaucoma; I69.991 Dysphagia following unspecified cerebrovascular disease; I10 Essential (primary) hypertension; E11.9 Type 2 diabetes mellitus without complications; I50.9 Heart failure, unspecified; E03.9 Hypothyroidism, unspecified; E78.5 Hyperlipidemia, unspecified; R94.31 Abnormal electrocardiogram [ECG] [EKG]
CPT/HCPCS: 36415; 70450; 71045; 80053; 81001; 84484; 85025; 93005; 99284; J0696